=== PATIENT | male | born 1985 | race Caucasian/White ===

== ENCOUNTER 2019-07-15 13:29 | Emergency (ER) | payer BC ==
[2019-07-15] MEDS ORDERED: LIDOCAINE 1% INJ-PF (10 MG/ML) 30 ML SDV INJ ONE (13:40)
--- NOTE | 2019-07-15 13:41 | ER Document Report ---
ED Wound - General Chief Complaint: Laceration Stated Complaint: LACERATION LEFT THUMB Time Seen by Provider: 07/15/19 13:38 Primary Care Provider: CANDIS AMBROCIO JR, DO [ACTIVE PROVISIONAL STAFF] - Follow up as needed (for ortho follow up) - [facility] Notes: 33-year-old male to the emergency department with complaints of a laceration to the dorsum of his left thumb. He did this while he was working in his shop today. He states he is up-to-date on his tetanus immunization. He states he is right-hand dominant. He states he can move the left thumb with no issues. He denies any numbness and tingling in the thumb. - Related Data Allergies/Adverse Reactions: No Known Allergies Allergy (Verified 04/17/13 18:49) Past Medical History - Social History Smoking Status: Never Smoker Family History: Reviewed & Not Pertinent Patient has suicidal ideation: No Patient has homicidal ideation: No - Immunizations Hx Diphtheria, Pertussis, Tetanus Vaccination: Yes Review of Systems - Review of Systems Constitutional: denies: Chills, Fever EENT: No symptoms reported Cardiovascular: denies: Chest pain, Palpitations, Heart racing, Dyspnea, Syncope, Dizziness, Lightheaded Respiratory: denies: Cough, Short of breath Gastrointestinal: denies: Abdominal pain, Diarrhea, Nausea, Vomiting Genitourinary: denies: Burning, Dysuria, Discharge, Frequency Musculoskeletal: denies: Back pain Skin: Other - Laceration to the left thumb Hematologic/Lymphatic: No symptoms reported Neurological/Psychological: No symptoms reported -: Yes All other systems reviewed and negative Physical Exam - Vital signs Vitals: Temp Pulse Resp BP Pulse Ox 98.4 F 77 16 138/87 H 100 07/15/19 14:12 07/15/19 14:12 07/15/19 14:12 07/15/19 14:12 07/15/19 14:12 Interpretation: Normal - General General appearance: Appears well, Alert - HEENT Head: Normocephalic, Atraumatic Eyes: Normal Pupils: PERRL - Respiratory Respiratory status: No respiratory distress Chest status: Nontender Breath sounds: Normal Chest palpation: Normal - Cardiovascular Rhythm: Regular Heart sounds: Normal auscultation Murmur: No - Abdominal Inspection: Normal Distension: No distension Bowel sounds: Normal Tenderness: Nontender Organomegaly: No organomegaly - Extremities Notes: There is a laceration to the dorsum of the left thumb. He is 5 out of 5 strength against resistance in all fingers in flexion and extension and also in bilateral thumbs strength is intact 5 out of 5 against resistance and opposition. The laceration has bleeding controlled. There is no evidence for tendon involvement. Cap refill is less than 2 seconds. Nontender to palpation over the hand and palm, wrist, elbow, shoulder - Neurological Neuro grossly intact: Yes Cognition: Normal Orientation: AAOx4 Martha Coma Scale Eye Opening: Spontaneous [place] Coma Scale Verbal: Oriented [place] Coma Scale Motor: Obeys Commands [place] Coma Scale Total: 15 Speech: Normal Motor strength normal: LUE, RUE, LLE, RLE Sensory: Normal - Psychological Associated symptoms: Normal affect, Normal mood - Skin Skin Temperature: Warm Skin Moisture: Dry Skin Color: Normal Course - Re-evaluation Re-evalutation: Impression: Thumb laceration Will place on Keflex. Tolerated suture repair well. - Vital Signs Vital signs: Temp Pulse Resp BP Pulse Ox 98.4 F 77 16 138/87 H 100 07/15/19 14:12 07/15/19 14:12 07/15/19 14:12 07/15/19 14:12 07/15/19 14:12 Procedures - Laceration/Wound Repair Left Finger Thumb Wound length (cm): 2.5 Wound's Depth, Shape: Superficial Laceration pre-procedure: Sterile drapes applied, Shur-Clens applied Anesthetic type: 1% Lidocaine Volume Anesthetic (mLs): 2 Wound explored: Clean, No foreign body removed Irrigated w/ Saline (mLs): 50 Wound Debrided: Minimal Wound Repaired With: Sutures Number of Sutures: 4 Discharge - Discharge Clinical Impression: Laceration of left thumb Qualifiers: Encounter type: initial encounter Damage to nail status: without damage Foreign body presence: without foreign body Qualified Code(s): S61.012A - Laceration without foreign body of left thumb without damage to nail, initial encounter Condition: Stable Disposition: HOME, SELF-CARE Instructions: Laceration Care ([facility]), Prophylactic Antibiotic ([facility]) Additional Instructions: TAKE ANTIBIOTICS IF ANY SIGNS OF INFECTION. KEEP WOUND CLEAN AND DRY. PROTECT THUMB WITH SPLINT. SUTURE REMOVAL IN 7 DAYS. RETUNR IMMEDIATELY IF ANY WORSENING PAIN, FEVERS, PUS DRAINING FROM THE SITE. Prescriptions: Cephalexin Monohydrate [Keflex 500 mg Capsule] 500 mg PO Q6H 10 Days #40 capsule Referrals: CANDIS AMBROCIO JR, DO [ACTIVE PROVISIONAL STAFF] - Follow up as needed (for ortho follow up)
[2019-07-15 14:13] VITALS: BP 138/87
== END 2019-07-15 14:22 | disposition home or self-care (01) ==
LOC: ER 13:29
DX: S61.012A Laceration without foreign body of left thumb without damage to nail, initial encounter (principal); X58.XXXA Exposure to other specified factors, initial encounter
CPT/HCPCS: 99282